=== PATIENT | female | born 1950 | race Caucasian/White ===

== ENCOUNTER → 2020-09-15 12:14 | Outpatient (CLI) | payer MEDICARE, SELFPAY ==
--- NOTE | ~2020-09-15 | DEXA_ITS ---
Bone Density Report Name: Roberta Gautam Age: 70 Sex: Female Ethnicity: White Date of : 1950 Indication: osteopenia; postmenopausal Referring Provider: GABE MEDINA Study: Bone densitometry was performed. Exam Date: September 15, 2020 Accession number: [id number] Bone Density: Region BMD T-score Z-score Classification AP Spine (L1-L4) 1.031 -0.1 1.9 Normal Femoral Neck (Left) 0.554 -2.7 -1.0 Osteoporosis Total Hip (Left) 0.715 -1.9 -0.5 Osteopenia Femoral Neck (Right) 0.640 -1.9 -0.2 Osteopenia Total Hip (Right) 0.676 -2.2 -0.8 Osteopenia Total Hip Mean 0.696 -2.1 -0.7 Osteopenia World Health Organization criteria for BMD impression classify patients as: Normal (T-score at or above -1.0), Osteopenia (T-score between -1.0 and -2.5), or Osteoporosis (T-score at or below -2.5). 10-year Fracture Risk: FRAX not reported because: Some T-score for Spine Total or Hip Total or Femoral Neck at or below -2.5 Previous Exams: Region Exam Age BMD T-score BMD Change BMD Change Date g/cm2 vs Baseline vs Previous AP Spine(L1-L4) 09/15/2020 70 1.031 -0.1 0.005 -0.036* 10/14/2016 66 1.067 0.2 0.041* 0.021 09/04/2014 64 1.047 0.0 0.021 0.015 06/17/2012 62 1.031 -0.1 0.006 0.004 05/29/2010 60 1.027 -0.2 0.001 0.009 05/03/2008 58 1.018 -0.3 -0.008 -0.008 04/14/2007 56 1.026 -0.2 Total Hip(Left) 09/15/2020 70 0.715 -1.9 -0.001 -0.048* 10/14/2016 66 0.762 -1.5 0.047* -0.024 09/04/2014 64 0.786 -1.3 0.071* -0.056* 06/17/2012 62 0.843 -0.8 0.127* 0.063* 05/29/2010 60 0.780 -1.3 0.064* 0.035* 05/03/2008 58 0.745 -1.6 0.029* 0.029* 04/14/2007 56 0.716 -1.9 Total Hip(Right) 09/15/2020 70 0.676 -2.2 -0.058* -0.118* 10/14/2016 66 0.794 -1.2 0.060* -0.004 09/04/2014 64 0.798 -1.2 0.064* -0.022 06/17/2012 62 0.820 -1.0 0.086* 0.062* 05/29/2010 60 0.758 -1.5 0.024 0.020 05/03/2008 58 0.738 -1.7 0.004 0.004 04/14/2007 56 0.734 -1.7 *Denotes significance at 95% confidence level, LSC for AP Spine = 0.022 g/cm2, LSC for Total Hip = 0.027 g/cm2 Clinical Information Provided by Patient: Has used the f
--- NOTE | ~2020-09-15 | MM_ITS ---
EXAMINATION: MM screening loraine BI w vi HISTORY: Screening mammogram TECHNIQUE: Craniocaudal and mediolateral oblique 3-D tomosynthesis images were obtained and synthetic 2-D images were generated. CAD analysis was submitted and interpreted. COMPARISON: 05/07/2019 bilateral digital screening mammogram 03/22/2018 diagnostic left digital mammogram 03/09/2018 bilateral digital screening mammogram BREAST PARENCHYMAL COMPOSITION: There are scattered areas of fibroglandular density. FINDINGS: There is a biopsy marker of the left breast; history of prior benign left breast biopsy. St able fibroglandular asymmetry. There is no evidence of suspicious mass, calcification, or architectur al distortion to suggest malignancy in either breast. There has been no suspicious interval change. IMPRESSION: 1. No mammographic evidence of malignancy. 2. Recommend routine screening mammography in one year. BI-RADS Category 2: Benign finding(s). Reviewed, dictated and finalized at location A.
== END ==
PROVIDERS: PCP Family Medicine; Visit Provider Obstetrics & Gynecology Gynecology
DX: Z12.31 Encounter for screening mammogram for malignant neoplasm of breast (principal); Z78.0 Asymptomatic menopausal state; M81.0 Age-related osteoporosis without current pathological fracture; M85.852 Other specified disorders of bone density and structure, left thigh; M85.851 Other specified disorders of bone density and structure, right thigh
CPT/HCPCS: 77063; 77067; 77080